=== PATIENT | male | born 1960 | race Caucasian/White ===

== ENCOUNTER 2017-11-20 09:30 | Outpatient (CLI) | payer MEDICARE, SELFPAY ==
--- NOTE | 2017-11-20 10:21 | DI.RAD_ITS ---
SYMPTOMS/DIAGNOSIS: RT SHOULDER PAIN RIGHT SHOULDER: No fracture or dislocation is seen. The AC joint appears intact. There are no significant degenerative changes. No tendon or soft tissue calcifications are seen. IMPRESSION: Negative right shoulder.
== END 2017-11-20 09:50 ==
PROVIDERS: PCP General Practice; Referring Provider General Practice; Visit Provider Student in an Organized Health Care Education/Training Program
DX: M25.511 Pain in right shoulder (principal)
CPT/HCPCS: 73030

== ENCOUNTER → 2017-11-20 09:40 | Outpatient (BNVA) | payer MEDICARE, SELFPAY | PROVIDERS: PCP General Practice; Referring Provider General Practice; Visit Provider Student in an Organized Health Care Education/Training Program | DX: M75.81 Other shoulder lesions, right shoulder (principal) | CPT/HCPCS: 99243 ==

== ENCOUNTER 2017-11-27 00:14 | Outpatient (CLI) | payer MEDICARE, SELFPAY ==
--- NOTE | 2017-11-27 08:51 | DI.CT_ITS ---
SYMPTOM/DIAGNOSIS: MEMORY LOSS NONCONTRAST HEAD CT: There are no prior comparison exams. No intracranial hemorrhage, mass or infarct is seen. The ventricles are normal in size. There are no visible white matter changes or atrophy. The orbits and sinuses are unremarkable. The mastoid air cells appear clear. IMPRESSION: Negative head CT.
== END 2017-11-27 00:34 ==
PROVIDERS: PCP General Practice; Visit Provider General Practice
DX: R41.3 Other amnesia (principal)
CPT/HCPCS: 70450; 73221

== ENCOUNTER 2017-11-27 00:14 | Outpatient (CLI) | payer MEDICARE, SELFPAY ==
--- NOTE | 2017-11-27 08:45 | DI.MRI_ITS ---
SYMPTOMS/DIAGNOSIS: RT SHOULDER PAIN, ? BICEPS AND SUBSCAPULAR INVOLVEMENT MRI OF THE RIGHT SHOULDER: Comparison is made with plain films dated . Proton density and fat suppressed T 2 axial and coronal and T 1 and fat suppressed T 2 sagittal sequences were performed. The exam is limited by patient body habitus. There is poor fat suppression at the periphery of the images. There is a small focal tear in the anterior supraspinatus tendon. There is some overall thickening of the supraspinatus tendon. There is mild spurring at the AC joint which appears to impinge on the distal supraspinatus muscle. There is no significant muscle atrophy. There is some thickening and intermediate signal in the proximal long head of the biceps tendon. There is also some thickening and edema in the subscapularis tendon superiorly. There is no significant joint fluid. IMPRESSION: Partial tear of the anterior supraspinatus tendon. Thickening and intermediate signal in the proximal long head of the biceps tendon as well as subscapularis tendon.
== END 2017-11-27 00:34 ==
PROVIDERS: PCP General Practice; Visit Provider Student in an Organized Health Care Education/Training Program
DX: M25.511 Pain in right shoulder (principal); M75.101 Unspecified rotator cuff tear or rupture of right shoulder, not specified as traumatic
CPT/HCPCS: 73221

== ENCOUNTER 2017-12-04 00:59 | Outpatient (CLI) | payer MEDICARE, SELFPAY ==
[2017-12-04 10:04] LABS: ALT 60 U/L (12-78); AST 29 U/L (15-37); Alkaline Phosphatase 94 U/L (46-116); Anion Gap 11.5 mmol/L (3-11); BUN 16 mg/dL (7-18); Bilirubin, Total 0.3 mg/dL (0.2-1.0); CO2 24.5 mmol/L (21.0-32.0); CREATININE 0.94 mg/dL (0.70-1.30); Calcium 8.9 mg/dL (8.5-10.1); Chloride 103 mmol/L (98-107); Cholesterol 292 mg/dL (50-200); Glucose 100 mg/dL (70-100); HDL Cholesterol 49 mg/dL (40-60); LDL CHOLESTEROL 208 mg/dL (<100); Potassium 4.3 mmol/L (3.5-5.1); Sodium 139 mmol/L (136-145); TSH 1.84 uIU/mL (0.358-3.74); Total Protein 7.4 g/dL (6.4-8.2); Triglyceride 155 mg/dL (30-150); Vitamin B12 1026 pg/mL (193-986)
== END 2017-12-04 01:19 ==
PROVIDERS: PCP General Practice; Visit Provider General Practice
DX: J45.909 Unspecified asthma, uncomplicated (principal); Z51.81 Encounter for therapeutic drug level monitoring; Z79.899 Other long term (current) drug therapy; R41.3 Other amnesia; S46.011A Strain of muscle(s) and tendon(s) of the rotator cuff of right shoulder, initial encounter; X58.XXXA Exposure to other specified factors, initial encounter; M75.82 Other shoulder lesions, left shoulder; M75.81 Other shoulder lesions, right shoulder
CPT/HCPCS: 36415; 80053; 80061; 83721; 99213; 80198; 82607; 84443

== ENCOUNTER 2018-06-09 12:47 | Outpatient (CLI) | payer MEDICARE, SELFPAY ==
--- NOTE | 2018-06-09 13:49 | W.PREOPHP ---
Assessment and Plan (1) Right rotator cuff tear: Current visit: Yes Status: Acute Plan: Although patient's physical exam has improved since his last orthopedic visit, he wishes to continue with surgery due to his continued right shoulder pain with activity. Educated patient on surgery covering surgical technique, recovery process, benefits and risks including but not limited to risk of infection, blood clot, damage to soft tissue/blood vessels/nerves in detail. After discussion patient gives verbal understanding of risks and elects to proceed with scheduling surgery. Patient had opportunity to have questions answered to his satisfaction. He will contact office if issues arise. Patient will continue to be scheduled for right arthroscopic rotator cuff repair, distal clavicle excision and possible biceps tenodesis with Dr. Gaxiola on 06/15/18. Qualifiers: Rotator cuff tear extent: incomplete Rotator cuff tear trauma status: traumatic Encounter type: subsequent encounter Qualified Code(s): S46.011D - Strain of muscle(s) and tendon(s) of the rotator cuff of right shoulder, subsequent encounter (2) Arthralgia of right acromioclavicular joint: Current visit: Yes Status: Acute History of Present Illness Narrative: Mr. Samuel is a 58-year-old left-hand dominant male who presents to clinic for pre-operative appointment for scheduled right arthroscopic rotator cuff repair, distal clavicle excision and possible biceps tenodesis with Dr. Gaxiola on 06/15/18. 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 He describes incident as pushing a segment of wall up onto the roof using both arms in a flexed position above shoulder height. He suddenly felt a sharp pulling sensation in his right arm and had pain immediately at time of injury. Patient has previously been seen in orthopedic clinic where he received a right subacromial injection on October 02, 2017 which did not provide pain relief. He describes pain as in the anterior aspect of right shoulder with radiation down the forearm and neck. He is unable to lift objects when his right arm is off to the side and has difficulty putting on his seat belt with his right arm. Pain is further aggravated with all use of the arm away from his body. Although he had previously reported a single episode of tingling in the pinky and ring finger at his last orthopedic appointment; he denies any recent numbness or tingling. Patient has been taking Aleve at night for pain management. Denies any further injury. Due to patient's continued pain despite adapting activity, taking regular doses of NSAIDs, daily exercises and a corticosteroid injection he was offered surgical intervention which he elected to be scheduled for. MRI of right shoulder: Partial tear of anterior supraspinatus, thickening and intermediate signal in the proximal long head of the biceps and subscapularis as per impression by Dr. Casey. As per Dr. Gaxiola's MRI interpretation noted at patient's previous visit on 12/04/17 stated full-thickness, small supraspinatus tear with high-grade partial tearing of subscapularis. Pertinent Surgical Information He does have history of hypertension that has been treated with prescription medications in the past. Patient reports he had severe muscle aches after being on hydrochlorothiazide which prompted his primary care provider to switch his medication. Patient reports he had been doing well on his new prescription for hypertension but did not pick up driver a recent refill and has been off the medication for several weeks. He has plans to get a prescription in near future. He had previously been diagnosed with hyperlipidemia but due to recent dietary changes as lowered his cholesterol. At this time patient is not on medication for hyperlipidemia. Patient reports previous history of what is described as pericarditis approximately 15-20 years ago. Patient reports he had initially presented to emergency room at [facility] and then went to [facility]. On additional testing done at [facility] he was diagnosed with irritation on the layer of tissue surrounding the heart. He was discharged and drove himself home. Denies any required cardiology follow-up or cardiac symptoms since that single episode. Denies past medical history of: stroke, cardiac issues, angina, COPD, sleep apnea, renal issues, liver issues, hepatitis, ulcers, bleeding disorders, seizures, migraines, anxiety, depression, diabetes, autoimmune disorders, thyroid issues Denies prior complications from surgery or anesthesia. Review of Systems Constitutional Denies fever(s), Denies frequent falls and Reports headache(s) (reports headaches occur when his right shoulder pain is severely aggravated) Eyes Denies change in vision ENT Denies dizziness, Denies ear discharge, Reports headache(s) (reports headaches occur when his right shoulder pain is severely aggravated), Denies epistaxis, Denies mouth lesions, Reports mouth pain (sore tooth several weeks ago that has since improved), Denies nasal discharge and Denies sore throat Cardiovascular Denies chest pain, Denies rapid heart rate, Denies irregular heart rhythm, Reports dyspnea (denies recent change; occasionally due to asthma; improves with inhaler), Reports dyspnea on exertion (denies recent change; occasionally due to asthma; improves with inhaler), Reports orthopnea (denies recent change; rarely but related to asthma; improves with inhaler), Reports paroxysmal nocturnal dyspnea (denies recent change; rare episodes due to asthma; improves with inhaler) and Denies slow heart rate Respiratory Denies cough, Reports dyspnea (denies recent change; occasionally due to asthma; improves with inhaler), Reports dyspnea on exertion (denies recent change; occasionally due to asthma; improves with inhaler) and Reports wheezing (denies recent change; occasionally due to asthma; improves with inhaler) Gastrointestinal Denies abdominal pain, Denies melena, Denies hematochezia, Denies constipation, Denies diarrhea, Denies nausea and Denies vomiting Genitourinary Denies hematuria, Denies dysuria and Denies urinary urgency Musculoskeletal Reports as per HPI, Reports joint swelling (occasional left knee swelling), Denies numbness and Denies tingling Neurologic Denies dizziness, Denies frequent falls, Reports headache(s) (reports headaches occur when his right shoulder pain is severely aggravated), Denies numbness and Denies tingling Psychiatric Denies anxiety and Denies depression Allergic/Immunologic Reports wheezing (denies recent change; occasionally due to asthma; improves with inhaler) PFSH Medical History Allergic rhinitis (Chronic 03/13/14) Wheezing (Chronic 03/13/14) Tendinitis of left rotator cuff (Resolved) Arthralgia of right acromioclavicular joint (Acute) Right rotator cuff tear (Acute) Postnasal drip (Resolved 03/13/14) GERD (gastroesophageal reflux disease) (Chronic) History of asthma (Chronic) Hx of eczema (Chronic) Surgical History History of appendectomy (Chronic) Hx of arthroscopy of left knee (Chronic) Colonoscopy - IV Sedation Vasectomy Family History Mother Breast cancer Heart disease Father No problems noted. Social History Smoking/Tobacco Use Status: Former Tobacco Use Tobacco: How many years used: 30 Alcohol Intake: current Alcohol Intake frequency: a few times a month Drug use: Never Household members: spouse Do you feel safe in your relationship?: Yes Meds Home Medications Medication Instructions Recorded Confirmed Type albuterol sulfate 0.63 mg INHALATION BID 03/23/15 06/09/18 History theophylline 600 mg PO BID 03/23/15 06/09/18 History albuterol sulfate [ProAir HFA] 1 puff INHALATION PRN PRN 05/14/15 06/09/18 History budesonide-formoterol [Symbicort] 2 puff INHALATION BID 06/09/18 06/09/18 History naproxen sodium [Aleve] 440 mg PO BID 06/09/18 06/09/18 History omeprazole 40 mg PO DAILY 06/09/18 06/09/18 History Allergies Allergy/AdvReac Type Severity Reaction Status Date / Time gaona Allergy Severe angioedema Verified 06/09/18 13:45 egg Allergy Severe angioedema Verified 06/09/18 13:45 nut - unspecified [nut] Allergy Severe angioedema Verified 06/09/18 13:45 Exam Const General: cooperative and no acute distress HENMT Head: normal to inspection, normocephalic and atraumatic Ears: external ears normal General nose exam: external nose normal and no nasal discharge Face and sinus: face symmetric Mouth: oral mucosae normal, lip normal, tongue normal and moist mucous membranes Teeth and gingiva: dentition normal Throat: posterior oropharynx normal Eyes General: appearance normal, both eyes and all related structures Pupils: PERRL EOM: EOM intact bilaterally Neck Neck: trachea midline Lymphatic: no lymphadenopathy noted Resp Effort & Inspection: normal respiratory effort and able to speak in complete sentences Auscultation: clear to auscultation bilaterally, no rales, no rhonchi and no wheezes Cardio Heart Sounds: S1 normal, S2 normal and no murmurs Pulses: radial pulses present bilaterally GI Palpation: soft, no hepatosplenomegaly and nontender Auscultation: normal bowel sounds Skin General skin exam: no rashes or lesions noted Extrem Other: Right shoulder examination: Slight tenderness to palpation over distal clavicle. Active range of motion yields forward flexion of 150 degrees, abduction of 105 degrees with pain elicited, external rotation with elbow adducted at side of 50 degrees and on internal rotation patient can reach level of approximately L5. Muscle strength to resisted forward flexion was 4 out of 5, resisted abduction was 4+ out of 5; internal and external rotation was 5 out of 5. Empty can test was positive for eliciting pain and weakness. Menard test elicited minimal discomfort over anterior shoulder. Scarf test and bearhug tests were negative for eliciting pain or weakness.
== END 2018-06-09 13:07 ==
PROVIDERS: PCP Family Medicine; Visit Provider Student in an Organized Health Care Education/Training Program
DX: Z01.818 Encounter for other preprocedural examination (principal); S46.011D Strain of muscle(s) and tendon(s) of the rotator cuff of right shoulder, subsequent encounter; X50.9XXD Other and unspecified overexertion or strenuous movements or postures, subsequent encounter; I10 Essential (primary) hypertension
CPT/HCPCS: NC

== ENCOUNTER 2018-06-15 08:52 | Day surgery (SDC) | payer MEDICARE, SELFPAY ==
[2018-06-09 13:00] VITALS: BP 159/98; PULSE 70; RESP 18; TEMP 36.7; O2SAT 95
[2018-06-15] VITALS (8 sets, daily range): BP systolic 104–145; BP diastolic 46–102; PULSE 59–75; RESP 14–20; TEMP 35.8–36.7; O2SAT 93–96
[2018-06-15] MEDS: Lactated Ringers 1,000 ML 80 ML IV ×2 (09:27→12:25)
[2018-06-15] MEDS: ceFAZolin 2 GM/50 ML BAG IVPB (11:49)
--- NOTE | 2018-06-15 11:59 | PDOC.DSDIS_ITS ---
Discharge Plan Disposition Patient Disposition: HOME Condition: Good Discharge Details Reason For Visit: R RTC tendinitis, biceps tendinitis, AC arthritis Attending Provider: Abel Gaxiola Primary Care Provider: Syeda Jennings Home Meds and New Rx's Prescriptions: New acetaminophen 500 mg tablet 1,000 mg PO Q8H PRN (Reason: pain) Qty: 90 RF: 3 oxycodone 5 mg tablet 5 mg PO Q4H Qty: 18 RF: 0 Continued albuterol sulfate 0.63 MG/3 ML solution for nebulization 0.63 mg Inhalation BID RF: 0 theophylline 600 MG tablet extended release 24 hr 600 mg PO BID RF: 0 albuterol sulfate [ProAir HFA] 200 PUFF HFA aerosol inhaler 1 puff Inhalation PRN PRNRF: 0 Symbicort 160-4.5 mcg/actuation Hfa Aerosol Inhaler 2 puff INHALATION BID RF: 0 naproxen sodium [Aleve] 220 mg Capsule 440 mg PO BID RF: 0 omeprazole 40 mg Capsule,Delayed Release(Dr/Ec) 40 mg PO DAILY RF: 0 Discharge Instructions Stand Alone Forms: Khalida Villagran w/RCR Referrals: Abel Gaxiola MD [ [facility] STAFF PHYSICIAN] - Equipment/Supplies: Sling Activity:: Stay in sling except for hygiene Remove Dressings/Wound Care:: 72 hours Shower/Bathe:: 72 hours Diet:: As Tolerated Discharge Orders Discharge Orders: Discharge Order (Routine); Ordered 06/15/18 Ordered By: Abel Gaxiola DS: Diagnosis Discharge Diagnosis (1) Arthralgia of right acromioclavicular joint: Status: Acute (2) Right rotator cuff tear: Status: Acute
--- NOTE | 2018-06-15 15:05 | W.PM.OP ---
Date of service: 06/15/18 Time of Service: 14:06 Operative Note DATE OF PROCEDURE: 06/15/18 PRE-OP DIAGNOSIS: Right AC arthritis, right biceps tendinitis, right rotator cuff tear POST-OP DIAGNOSIS: other (Right AC arthritis, right type II SLAP tear, right glenohumeral arthritis, right rotator cuff) PROCEDURE: - Mini-Open Distal Clavicle Excision - Arthroscopic Rotator Cuff Repair - Extensive debridement of anterior and posterior glenohumeral joint and rotator cuff - Sub-pectoral biceps tenodesis - Subacromial Debridement with Acromioplasty SURGEON: Abel Gaxiola ASSISTING SURGEON: Ellen Saxena ROUGH ROUNDER: Kieran Kendall ANESTHESIA: GETA and regional ESTIMATED BLOOD LOSS: 20 PATHOLOGY: none sent COMPLICATIONS: None Patient was transported to: PACU Patient's condition: stable Indications: I have seen Quinten in clinic for a painful shoulder. Pathology was confirmed based on MRI and exam findings. Nonoperative measures were exhausted but disability and pain persisted. I discussed shoulder arthroscopy and procedures. I reviewed the risks of the procedures to include, but not limited to, bleeding, infection, pain, stiffness, damage to nerves or vessels, recurrence, hardware failure, blood clot. Despite these risks, the patient elected to proceed. Findings: There were signs of arthrosis of the distal clavicle; a 1cm wedge was resected A diagnostic arthroscopy was performed with the following findings: - Glenohumeral Joint: Areas of grade III chondromalacia over a large portion of the central posterior humeral head and a smaller portion of the anterior glenoid - Labrum: Type II SLAP tear - Cuff: Full-thickness anterior supraspinatus tear - Biceps: Inflammatory change - Subacromial: Notable bursitis with a small anterolateral spur and full-thickness rotator cuff tear Procedure Description: Quinten was greeted in the preoperative holding area where the correct side was identified and marked. The consent was reviewed with the patient and signed. The history and physical was updated. All questions were answered. Quinten was taken back to the PACU for administration of an intrascalene nerve block. Quinten was then taken to the operating room. The patient was placed into the supine position on the operating room table. A general anesthetic was administered. Quinten was then positioned in the beach chair position. All bony prominences were well padded. The head was placed in a foam art department head in a neutral position. Prophylactic antibiotics in the form of cefazolin were administered. The right arm/shoulder was then prepped with Chloraprep and draped in a standard fashion with stockinette and shoulder drape. A timeout to confirm correct identity, side and site, procedure, allergies, anesthesia, and medical concerns was performed. The arm was placed into a pneumatic rodrigues, SPIDER2. The distal clavicle was approached through a 2 and half centimeter incision within Dominic's lines. This was made overlying the AC joint. The skin was incised sharply. The deeper tissues dissected with electrocautery. The clavipectoral fascia was identified and incised longitudinally off of the distal clavicle and onto the acromion. This was reflected subperiosteally to expose the distal clavicle and the AC joint. With adequate exposure a 1 cm bony resection was made using an oscillating saw. This is angled posteriorly to avoid any posterior impingement. Once it was fully resected, it was inspected to make sure it is of adequate width. A rasp was used to smooth the bony edges inferiorly and posteriorly primarily. A small amount of bone wax was placed on the end of the distal clavicle. The wound was thoroughly irrigated. There is no active bleeding. The clavipectoral fascia was then closed with a 0 Vicryl in a watertight fashion. The subcutaneous tissues were then reapproximated with a 2-0 Vicryl. The shoulder arthroscopy was then performed. The glenohumeral joint was injected with 20 cc of normal saline with good flow back. A standard posterior portal was made and the joint was entered atraumatically with a blunt arthroscope. Once inside we had good visualization of the structures of the glenohumeral joint. An anterior portal was established with spinal needle localization. A 6.5 mm cannula was inserted. A probe was then used to perform a diagnostic arthroscopy. There is noted to be grade III chondromalacia over the central posterior portion of the humeral head as well as the anterior glenoid. The labrum was detached superiorly representing a type II SLAP tear extending from approximately 11:00 to 3:00. There were no loose bodies in the inferior pouch. The superior rotator cuff was torn anteriorly within the supraspinatus tendon. The biceps tendon had no tearing but inflammatory change. The subscapularis was intact. The rotator interval was also significantly thickened. This area was released. Fraying of the superior anterior labrum was debrided down. The biceps was tenotomized using electrocautery. A debridement within the shoulder was performed with both shaver and electrocautery. The rotator cuff was inspected and the tearing of the anterior supraspinatus was debrided as well as some of the footprint. Attention was then turned to the biceps tenodesis. With the arm in some slight external rotation abduction pectoralis major tendon was identified. A 2 cm incision was made overlying the insertion to the humerus. Sharp dissection was carried onto the skin. Blunt dissection was carried down to the fascia the biceps musculature. This was entered with a tenotomy scissors. The biceps groove was palpable and the biceps tendon was palpable. It was withdrawn from the wound using Allis clamp and finger dissection. Once the biceps tendon was out of the arm the biceps groove was prepared using a rasp. A Mitek Lupine anchor was inserted into the biceps groove at the level of the pectoralis major insertion. This was tested to make sure had excellent fixation into the bone. Using a free needle I then placed a locking Krak?w stitch and each side of the biceps tendon using one limb from each suture at the level of the muscular tendinous junction and moving proximally. Excess tendon was then cut. Using the free suture limb I then shuttled the tendon down to the prepared surface of the humerus. It laid flat against the humerus. It was at the level of the pectoralis major tendon. The suture limbs were then tied. The wound was irrigated. The subcutaneous tissue was reapproximated with a 2-0 Vicryl. The arthroscope was then inserted into the subacromial space. The 6.5 mm cannula was placed lateral to the CA ligament. A complete bursectomy is performed anteriorly, posteriorly, and laterally with electrocautery and shaver. This had excellent exposure of the rotator cuff. The bursal side rotator cuff was visualized and the tearing of the anterior supraspinatus was identified. There was a small anterolateral spur. Using a spinal needle two lateral portals were established. The posterior portal became the viewing portal and the anterior lateral portal became the working portal. The rotator cuff was debrided down. The footprint was debrided and rasped. This is a primary small crescent tear. A single double loaded Mitek Healix anchor was then inserted just lateral to the articular edge. Was placed without difficulty. 2 horizontal mattress sutures were then placed within the supraspinatus tendon. The tissue quality was quite good. These were then tied with excellent approximation and closure of the space between the rotator cuff and the footprint. 2 lateral anchors were then placed each with one limb from each suture. This created a crossing pattern which further reapproximated the tendon down to the bone. Suture limbs were cut. A 5.0 mm kevin was then inserted from the posterior portal. The anterolateral corner of the acromion was then resected in plane with the posterior slope of the acromion. The scope equipment was removed from the shoulder. Excess fluid was evacuated. The portal sites were closed with 3-0 Monocryl. The wounds were dressed with Steri-Strips, 4 x 4's, ABDs, Medipore tape. A sling was applied. The patient tolerated the procedure well and was returned to the Same Day Surgery area in a stable condition suffering no known complication.
== END 2018-06-15 16:53 | disposition home or self-care (01) ==
PROVIDERS: PCP Family Medicine; Visit Provider Student in an Organized Health Care Education/Training Program
PROC: (CPT 29827; principal; 2018-06-15 10:15)
PROC: (CPT 23120; 2018-06-15 10:15)
PROC: (CPT 23430; 2018-06-15 10:15)
DX: S43.431A Superior glenoid labrum lesion of right shoulder, initial encounter (principal); S46.011A Strain of muscle(s) and tendon(s) of the rotator cuff of right shoulder, initial encounter; M25.511 Pain in right shoulder; M19.011 Primary osteoarthritis, right shoulder; M94.211 Chondromalacia, right shoulder; M75.51 Bursitis of right shoulder; M75.21 Bicipital tendinitis, right shoulder; X50.0XXA Overexertion from strenuous movement or load, initial encounter; Y93.H3 Activity, building and construction; I10 Essential (primary) hypertension
CPT/HCPCS: 23430; 29827; 29823; 29826; 23120; C1713; 76942; J0690; L3670

== ENCOUNTER → 2018-06-25 09:23 | Outpatient (BNVA) | payer MEDICARE, SELFPAY | PROVIDERS: PCP Family Medicine; Referring Provider Family Medicine; Visit Provider Student in an Organized Health Care Education/Training Program | DX: Z47.89 Encounter for other orthopedic aftercare (principal); S46.011D Strain of muscle(s) and tendon(s) of the rotator cuff of right shoulder, subsequent encounter; S43.431D Superior glenoid labrum lesion of right shoulder, subsequent encounter; M19.011 Primary osteoarthritis, right shoulder; M25.511 Pain in right shoulder; M94.211 Chondromalacia, right shoulder; M75.51 Bursitis of right shoulder; M75.21 Bicipital tendinitis, right shoulder; X50.0XXD Overexertion from strenuous movement or load, subsequent encounter; Z98.890 Other specified postprocedural states ==

== ENCOUNTER → 2018-07-23 09:00 | Outpatient (BNVA) | payer MEDICARE, SELFPAY | PROVIDERS: PCP Family Medicine; Referring Provider Family Medicine; Visit Provider Student in an Organized Health Care Education/Training Program | DX: Z47.89 Encounter for other orthopedic aftercare (principal); M25.511 Pain in right shoulder ==

== ENCOUNTER → 2018-08-23 09:58 | Outpatient (BNVA) | payer MEDICARE, SELFPAY | PROVIDERS: PCP Family Medicine; Referring Provider Family Medicine; Visit Provider Student in an Organized Health Care Education/Training Program | DX: Z47.89 Encounter for other orthopedic aftercare (principal); M25.511 Pain in right shoulder ==

== ENCOUNTER 2019-04-25 21:43 | Outpatient (REF) | payer MEDICARE, SELFPAY ==
[2019-04-25 21:30] LABS: HCT 46.4 % (40.0-50.0); HGB 15.9 g/dL (13.5-17.5); Mean Corp. HGB Concentration 34.3 g/dL (32.0-36.0); Mean Corpuscular Hemoglobin 29.9 pg (27.0-33.0); Mean Corpuscular Volume 87.4 fL (80-95); Platelet Count 255 x1000/uL (130-400); RBC 5.31 m/cumm (4.50-6.00); RBC Distribution Width 13.6 % (11.8-14.1); White Blood Cell Count 5.15 k/cumm (4.4-10.8)
[2019-04-25 21:38] LABS: ALT 23 U/L (16-63); AST 18 U/L (15-37); Alkaline Phosphatase 96 U/L (46-116); Anion Gap 10.2 mmol/L (3-11); BUN 18 mg/dL (7-18); Bilirubin, Total 0.4 mg/dL (0.2-1.0); CO2 27.8 mmol/L (21.0-32.0); CREATININE 0.99 mg/dL (0.70-1.30); Calcium 8.9 mg/dL (8.5-10.1); Calculated LDL 173 mg/dL (<100); Chloride 105 mmol/L (98-107); Cholesterol 239 mg/dL (<200); Glucose 78 mg/dL (74-106); HDL Cholesterol 47 mg/dL (40-60); Potassium 4.3 mmol/L (3.5-5.1); Sodium 143 mmol/L (136-145); Total Protein 7.1 g/dL (6.4-8.2); Triglyceride 95 mg/dL (<150)
[2019-04-27 14:01] LABS: PSA, Screening 8.4 ng/mL (0.0-3.5)
== END 2019-04-25 22:03 ==
LOC: NCHCN 21:43
PROVIDERS: PCP Family Medicine; Visit Provider Family Medicine
DX: I10 Essential (primary) hypertension (principal); K21.9 Gastro-esophageal reflux disease without esophagitis; E66.9 Obesity, unspecified; Z12.5 Encounter for screening for malignant neoplasm of prostate
CPT/HCPCS: 80053; 80061; 84153; 85027

== ENCOUNTER → 2019-11-11 07:43 | Outpatient (BNVA) | payer MEDICARE, SELFPAY | PROVIDERS: PCP Family Medicine; Referring Provider Family Medicine; Visit Provider Surgery | DX: R13.10 Dysphagia, unspecified (principal); Z86.010 Personal history of colon polyps; Z11.59 Encounter for screening for other viral diseases | CPT/HCPCS: 99212; 99213; U0003 ==

== ENCOUNTER 2019-11-11 08:42 | Outpatient (CLI) | payer MEDICARE, SELFPAY ==
[2019-11-13 00:24] LABS: COVID-19 RT-PCR Result NEGATIVE (Negative)
== END 2019-11-11 09:02 ==
PROVIDERS: PCP Family Medicine; Visit Provider Surgery
DX: Z01.818 Encounter for other preprocedural examination (principal)
CPT/HCPCS: U0003

== ENCOUNTER 2019-11-16 09:38 | Day surgery (SDC) | payer MEDICARE, SELFPAY ==
--- NOTE | 2019-11-16 08:44 | ENDO_ITS ---
Date of service: 11/16/19 Time of Service: 11:08 Endoscopy Report DATE OF PROCEDURE: 11/16/19 PRE-OP DIAGNOSIS: Dysphagia, screening colonoscopy, hx of colon polyps POST-OP DIAGNOSIS: other (Erosive esophagitis, gastritis and duodenitis, colon polyps and milod diverticulosis) PROCEDURE: 1. EGD with biopsies 2. Colonoscopy with polypectomy SURGEON: Christie Bell ANESTHESIA: other (General/ ASA 2/ Coco Chawla, [employer]) ESTIMATED BLOOD LOSS: 10 PATHOLOGY: other (Duodenal bx, gastric bx, esophageal bx, colon polyps) COMPLICATIONS: None DISPOSITION: same day INDICATIONS: Quinten is here today to see me due to issues with swallowing. He tells me that about 6 to 8 months ago he started with what he describes as hiccups with eating. At first it was not happening with every meal but as time went on it started to be daily and with every meal. He feels like meats are the worst but he even has problems with water. He sometimes has to make himself throw up in order for him to then be able to swallow some food. He denies any hematemesis. He denies any heart burn. He continues to take his omeprazole 40 mg daily. He does tell me that he has lost about 30 pounds since this started. He feels that the weight loss is due to the fact that he has not been eating much. He states that sometimes he goes all weekend without eating because of how bad it is. He is a former smoker. He drinks 2 or 3 beers on the weekends n othing during the week. Reviewing his chart he is also due for a colonoscopy. At his last colonoscopy in 2015 he was noted to have a tubular adenoma in the transverse colon and I sessile serrated adenoma in the sigmoid colon. He was due for another colonoscopy in 2019. He denies any changes in bowel habits, melena, hematochezia, or family history of colon cancer. PREP: Miralax/Dulcolax PROCEDURE START TIME: 11:08 PROCEDURE END TIME: 12:05 FINDINGS: EGD- Severe erosive esophagitis at the GE junction with narrowing. Tissue was friable. Moderate inflammation in the duodenum and the stomach Colonoscopy- mild diverticulosis and polyps PROCEDURE DESCRIPTION: After informed consent was obtained the patient was take to the procedure room and placed in a supine position. Monitors were applied and a time out was done. The patients name, date of , procedure type, allergies to medications and metal in their body was reviewed. A bite block was placed and the patient was sedated. Once sedated and comfortable the gastroscope was advanced through the oropharynx which was grossly normal into the esophagus. The proximal and mid- esophagus were normal. In the distal esophagus there was erosive inflammation as well as some scarring. There was a pill noted at the GE junction. The scope was advanced into the stomach and through the pylorus into the 3rd portion of the duodenum. The duodenum was noted to be moderately inflamed. Biopsies were done in the duodenal bulb. The scope was retracted back into the stomach and biopsies were done to rule out H. pylori. There were no ulcers. The scope was retroflexed. The cardia and fundus were noted to be normal. There was no hiatal hernia noted. The scope was retracted back into the esophagus and biopsies were done of the GE junction to rule out Heller's. The Z line was irregular and hard to find due to the severe inflammation. The GE junction was at 35 cm. While the patient was still sedated they were placed in a left decubitous position. A rectal exam was done. External exam was normal. Internal exam revealed a normal sphincter tone and no palpable masses. The prostate felt smooth. The scope was then introduced and retro-flexed. No internal hemorrhoids were identified. The scope was then advanced to the cecum without difficulty. The ileocecal valve and appendiceal orifice were identified. The prep was adequate. The scope was then slowly retracted over 15 minutes back into the rectum. Polyps were removed with cold forceps in the Descending colon x2, sigmoid colon and rectum. There was also mild diverticulosis noted of the sigmoid colon. The scope was removed and the patient was woken up and taken back to Same day surgery in stable condition. The patient tolerated the procedure well and there were no immediate compli cations. Follow up: 1 week in the office. Will increase his Omeprazole to 40 mg BID and add Carafate slurry tid
[2019-11-16 09:46] VITALS: BP 122/80; PULSE 84; RESP 18; TEMP 36.2; O2SAT 98
[2019-11-16] MEDS: Lactated Ringers 1,000 ML 80 ML IV (10:35)
--- NOTE | 2019-11-16 11:11 | BOWEL_PTH ---
PATIENT: Quinten Samuel LOC: [facility] U#:[id number] AGE/SX: 59/M ROOM: RE11/16/[address]: Christie Bell MD : [id number] BED: DIS: 11/16/2019 SPEC #: [id number] RECD: 11/16/19 12:32 STATUS: HENRI RE #: [id number] JACKIE: 11/16/19 11:[address]: Christie Bell DEPT: Surgical Specimen RECD BY: Adam Joel ENTERED: 11/16/19 12:36 SP TYPE: Bowel OTHR DR: Syeda Jennings Tissues: 1 - BIOPSY BOWEL 2 - BIOPSY BOWEL 3 - BIOPSY BOWEL 4 - BIOPSY BOWEL 5 - BIOPSY BOWEL 6 - BIOPSY BOWEL 7 - BIOPSY BOWEL Procedures: GROSS AND MICRO LEVEL 4 Comments: [id number]
--- NOTE | 2019-11-16 12:00 | PDOC.DSDIS_ITS ---
Discharge Plan Disposition Patient Disposition: HOME Condition: Good Discharge Details Attending Provider: Christie Bell Primary Care Provider: Syeda Jennings Home Meds and New Rx's Prescriptions: New omeprazole 40 mg capsule,delayed release(DR/EC) 40 mg PO BID Qty: 60 RF: 2 sucralfate 1 gram tablet 1 gm PO TID Qty: 56 RF: 0 Continued albuterol sulfate 0.63 MG/3 ML solution for nebulization 0.63 mg Inhalation BID RF: 0 theophylline 600 MG tablet extended release 24 hr 600 mg PO BID RF: 0 lisinopril 10 mg tablet 10 mg PO DAILY RF: 0 epinephrine 0.3 mg/0.3 mL auto-injector 0.3 mg IM ONCE RF: 0 clobetasol 0.05 % ointment 1 applic TP BID RF: 0 hydrocortisone 2.5 % cream 1 applic TP BID PRNRF: 0 albuterol sulfate [Ventolin HFA] 90 mcg/actuation HFA aerosol inhaler 2 puff IH QID RF: 0 cyclobenzaprine 10 mg tablet 10 mg PO HS RF: 0 albuterol sulfate [ProAir HFA] 200 PUFF HFA aerosol inhaler 1 puff Inhalation PRN PRNRF: 0 budesonide-formoterol [Symbicort] 160-4.5 mcg/actuation Hfa Aerosol Inhaler 2 puff INHALATION BID RF: 0 acetaminophen 500 mg tablet 1,000 mg PO Q8H PRN (Reason: pain) Qty: 90 RF: 3 Discontinued naproxen sodium [Aleve] 220 mg Capsule 440 mg PO BID RF: 0 omeprazole 40 mg Capsule,Delayed Release(Dr/Ec) 40 mg PO DAILY RF: 0 Discharge Instructions Instructions: Diet for Stomach Ulcers and Gastritis (ED), Esophagitis (DC), Duodenitis (DC), Gastritis (DC), Colorectal Polyps (DC), Diverticulosis (DC) Additional Instructions: Findings: erosive esophagitis inflammation in the small bowel and stomach Mild diverticulosis several small polyps in the large bowel Follow up: 2 weeks in the office Please call if you develop: fevers >101.5 Nausea or Vomiting Abdominal pain that is not transient DAY SURGERY UNIT POST ENDOSCOPY INSTRUCTIONS 1. Because there will be medication in your system for the next 24 hours, you may feel a little sleepy. Your coordination will be affected. Therefore: a. Do not drive or operate dangerous equipment for 24 hours. b. Do not drink alcohol beverages for 24 hours (not even beer). c. Plan to go home and rest for the day. 2. Generally there are no restrictions on your activity after a day or so has gone by, but you may feel a bit fatigued for a few days. 3 After you arrive home you may have a light meal and return to a normal diet as you can tolerate it without feeling sick to your stomach. 4. After surgery, you may feel pain or discomfort. This should be only transien t, but if it persists please contact your doctor. 5. If there are any questions regarding the findings of your procedure, please feel free to contact your doctor. 6. If you are unable to contact your doctor with a problem, contact the hospital at [phone]. 7. Continue all your regular medications unless directed otherwise. I understand the above instructions and have no questions. Signature of Patient or Responsible Adult Escort Date/Time Name of Responsible Adult Escort Signature of Nurse Date/Time Activity:: Activity as Tolerated Diet:: soft foods Discharge Orders Discharge Orders: Discharge Order (Routine); Ordered 11/16/19 Ordered By: Christie Bell
--- NOTE | 2019-11-16 12:25 | PDOC.DSDIS_ITS ---
Discharge Plan Disposition Patient Disposition: HOME Condition: Good Discharge Details Attending Provider: Christie Bell Primary Care Provider: Syeda Jennings Home Meds and New Rx's Prescriptions: New omeprazole 40 mg capsule,delayed release(DR/EC) 40 mg PO BID Qty: 60 RF: 2 sucralfate 1 gram tablet 1 gm PO TID Qty: 56 RF: 0 Continued albuterol sulfate 0.63 MG/3 ML solution for nebulization 0.63 mg Inhalation BID RF: 0 theophylline 600 MG tablet extended release 24 hr 600 mg PO BID RF: 0 lisinopril 10 mg tablet 10 mg PO DAILY RF: 0 epinephrine 0.3 mg/0.3 mL auto-injector 0.3 mg IM ONCE RF: 0 clobetasol 0.05 % ointment 1 applic TP BID RF: 0 hydrocortisone 2.5 % cream 1 applic TP BID PRNRF: 0 albuterol sulfate [Ventolin HFA] 90 mcg/actuation HFA aerosol inhaler 2 puff IH QID RF: 0 cyclobenzaprine 10 mg tablet 10 mg PO HS RF: 0 albuterol sulfate [ProAir HFA] 200 PUFF HFA aerosol inhaler 1 puff Inhalation PRN PRNRF: 0 budesonide-formoterol [Symbicort] 160-4.5 mcg/actuation Hfa Aerosol Inhaler 2 puff INHALATION BID RF: 0 acetaminophen 500 mg tablet 1,000 mg PO Q8H PRN (Reason: pain) Qty: 90 RF: 3 Discontinued naproxen sodium [Aleve] 220 mg Capsule 440 mg PO BID RF: 0 omeprazole 40 mg Capsule,Delayed Release(Dr/Ec) 40 mg PO DAILY RF: 0 Discharge Instructions Instructions: Gastritis (DC), Diverticulosis (DC), Diet for Stomach Ulcers and Gastritis (ED), Colorectal Polyps (DC), Esophagitis (DC), Duodenitis (DC) Additional Instructions: Findings: erosive esophagitis inflammation in the small bowel and stomach Mild diverticulosis several small polyps in the large bowel Follow up: 2 weeks in the office Please call if you develop: fevers >101.5 Nausea or Vomiting Abdominal pain that is not transient DAY SURGERY UNIT POST ENDOSCOPY INSTRUCTIONS 1. Because there will be medication in your system for the next 24 hours, you may feel a little sleepy. Your coordination will be affected. Therefore: a. Do not drive or operate dangerous equipment for 24 hours. b. Do not drink alcohol beverages for 24 hours (not even beer). c. Plan to go home and rest for the day. 2. Generally there are no restrictions on your activity after a day or so has gone by, but you may feel a bit fatigued for a few days. 3 After you arrive home you may have a light meal and return to a normal diet as you can tolerate it without feeling sick to your stomach. 4. After surgery, you may feel pain or discomfort. This should be only transien t, but if it persists please contact your doctor. 5. If there are any questions regarding the findings of your procedure, please feel free to contact your doctor. 6. If you are unable to contact your doctor with a problem, contact the hospital at [phone]. 7. Continue all your regular medications unless directed otherwise. I understand the above instructions and have no questions. Signature of Patient or Responsible Adult Escort Date/Time Name of Responsible Adult Escort Signature of Nurse Date/Time Activity:: Activity as Tolerated Diet:: soft foods Discharge Orders Discharge Orders: Discharge Order (Routine); Ordered 11/16/19 Ordered By: Christie Bell Discharge Data Discharge Date/Time-TO BE ENTERED AT DEPARTURE: 11/16/19 13:09
[2019-11-16 12:36] VITALS: BP 108/74; PULSE 66; RESP 15; TEMP 36.2; O2SAT 100
== END 2019-11-16 13:09 | disposition home or self-care (01) ==
PROVIDERS: PCP Family Medicine; Visit Provider Surgery
PROC: (CPT 45380; principal; 2019-11-16 11:45)
DX: Z12.11 Encounter for screening for malignant neoplasm of colon (principal); C16.0 Malignant neoplasm of cardia; Z86.010 Personal history of colon polyps; D12.4 Benign neoplasm of descending colon; K57.30 Diverticulosis of large intestine without perforation or abscess without bleeding; K29.80 Duodenitis without bleeding; K62.1 Rectal polyp
CPT/HCPCS: 45380; 43239; 88305; J2001

== ENCOUNTER → 2019-11-22 09:43 | Outpatient (BNVA) | payer MEDICARE, SELFPAY | PROVIDERS: PCP Family Medicine; Referring Provider Family Medicine; Visit Provider Surgery | DX: C15.5 Malignant neoplasm of lower third of esophagus (principal) | CPT/HCPCS: 99212; 99442 ==

== ENCOUNTER 2019-12-14 10:11 | Outpatient (CLI) | payer MEDICARE, SELFPAY ==
--- NOTE | 2019-12-14 | DI.CT_ITS ---
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 DISEASE STATUS. TECHNIQUE: Imaging Protocol: Axial computed tomography images with coronal and sagittal reformatted images were created and reviewed CONTRAST MATERIAL: Intravenous: Omnipaque 350 Contrast volume:100 ml Oral: yes COMPARISON: No exams were available for comparison FINDINGS: CHEST: Thyroid: Unremarkable Tracheobronchial tree: Patent where visualized. Mediastinum and Evette: No dominant adenopathy or fluid collection. Pulmonary parenchyma: No consolidation or dominant measurable mass. No pulmonary nodules. Pleura: No effusion or pneumothorax. Lymph nodes: Within normal limits. Aorta: Thoracic portion non-dilated. Heart: Normal size. Bones: Degenerative disc changes. ABDOMEN: Liver: Normal density. No measurable mass. Gallbladder and biliary tract: No radiodense calculus or dilation. Pancreas: Normal density, no abnormal calcifications or inflammatory process. Spleen: Normal. Kidneys: Normal size, contour and axis. No obstructive uropathy. No masses seen. Small cysts bilatera lly. Nonobstructing stone lower pole right kidney. Adrenal glands: No masses seen. Aorta: Abdominal portion non-dilated. Lymph nodes: Within normal limits. Stomach and bowel: There is circumferential thickening of the distal esophagus, just above the GE franc ction to a diameter of 3.6 cm. The length of the mass measures 4.5 cm cephalo caudad. There are a few small surrounding lymph nodes in the upper abdomen, the largest measuring 2.1 cm. There are a few ot her smaller para-aortic lymph nodes, the largest measuring 1.5 cm beneath the level of the left renal vein. Soft tissues: Small fatty containing umbilical hernia. PELVIS: Bladder: Symmetric distention, mild wall thickening. Bowel: No obstruction or bowel wall thickening. Diverticulosis. Peritoneal cavity: No ascites, collection or mesenteric inflammatory response. Bones: Degenerative changes. L5 spondylolysis and mild L5-S1 spondylolisthesis. Reproductive organs: Enlarged prostate to a diameter of 5.8 cm. IMPRESSION: Distal esophageal mass. Mildly enlarged lymph nodes near the GE junction and para aortic region. RADIATION DOSE DELIVERED: 2,512.36mGy.cm Total DLP DATA REPOSITORY: All CT scans at this facility are submitted to the National Radiology Data Registry (NRDR) Dose Index Registry (DIR) with the [employer] ([employer]). RADIATION OPTIMIZATION: All CT scans at this facility use at least one of these dose optimization te chniques: automated exposure control; mA and/or kV adjustment per patient size (includes targeted exa ms where dose is matched to clinical indication); or iterative reconstruction.
[2019-12-14] MEDS: Omnipaque 350 MG/ML 50 ML BTL IJ (07:09)
[2019-12-14] MEDS: Breeza Beverage 473 ML BTL PO ×3 (07:10→07:11)
[2019-12-14 07:41] LABS: CREATININE 1.06 mg/dL (0.70-1.30)
[2019-12-14] MEDS: Omnipaque 350 MG/ML 100 ML BTL IJ (08:36)
[2019-12-14] MEDS: Normal Saline - Diluent 50 ML VIAL IV (08:37)
[2019-12-14] MEDS: Normal Saline Flush 10 ML SYR IVP (08:38)
== END 2019-12-14 10:31 ==
PROVIDERS: PCP Family Medicine; Visit Provider Thoracic Surgery (Cardiothoracic Vascular Surgery)
DX: C15.5 Malignant neoplasm of lower third of esophagus (principal); R59.0 Localized enlarged lymph nodes
CPT/HCPCS: 74177; 71260; 82565; J3490; Q9967

== ENCOUNTER 2019-12-21 01:13 | Outpatient (CLI) | payer MEDICARE, SELFPAY ==
[2019-12-21 11:24] LABS: Abs Immature Grans 0.02 10^3/uL (0.0-0.06); Absolute Basophil Count 0.08 10^3/uL (0.0-0.2); Absolute Eosinophil Count 0.71 10^3/uL (0.0-0.7); Absolute Lymphocyte Count 1.59 10^3/uL (1.2-3.4); Absolute Monocyte Count 0.48 10^3/uL (0.1-0.8); Absolute Neutrophil Count 5.23 10^3/uL (1.2-6.7); Eosinophils % 8.8; HCT 47.2 % (40.0-50.0); HGB 16.4 g/dL (13.5-17.5); Immature Grans % 0.2; Lymphocytes % 19.6; MCH 29.8 pg (27.0-33.0); MCHC 34.7 % (32.0-36.0); MCV 85.8 fL (80-95); MPV 10.9 fL (8.0-11.0); Monocytes % 5.9; Neutrophils % 64.5; Nucleated RBC 0 %; Platelet Count 275 10^3/uL (130-400); RDW 13.2 % (11.8-14.1); RDW-SD 41.4 fL; WBC 8.11 10^3/uL (4.4-10.8)
[2019-12-21 11:37] LABS: ALT 24 U/L (16-63); AST 16 U/L (15-37); Albumin 3.9 g/dL (3.4-5.0); Alkaline Phosphatase 118 U/L (46-116); Anion Gap 8.9 mmol/L (3-11); BUN 14 mg/dL (7-18); Bilirubin, Total 0.4 mg/dL (0.2-1.0); CO2 27.1 mmol/L (21.0-32.0); CREATININE 0.93 mg/dL (0.70-1.30); Calcium 9.8 mg/dL (8.5-10.1); Chloride 103 mmol/L (98-107); Glucose 96 mg/dL (74-106); Magnesium 2.1 mg/dL (1.8-2.4); Potassium 4.1 mmol/L (3.5-5.1); Sodium 139 mmol/L (136-145); Total Protein 7.7 g/dL (6.4-8.2)
== END 2019-12-21 01:33 ==
PROVIDERS: PCP Family Medicine; Visit Provider Internal Medicine Medical Oncology
DX: C15.9 Malignant neoplasm of esophagus, unspecified (principal)
CPT/HCPCS: 36415; 80053; 83735; 85025

== ENCOUNTER 2020-01-09 01:05 | Outpatient (RCR) | payer MEDICARE, SELFPAY ==
[2020-01-02] MEDS: Normal Saline Flush 10 ML SYR IVP (05:38)
[2020-01-02 10:26] LABS: Abs Immature Grans 0.01 10^3/uL (0.0-0.06); Absolute Basophil Count 0.08 10^3/uL (0.0-0.2); Absolute Eosinophil Count 0.53 10^3/uL (0.0-0.7); Absolute Monocyte Count 0.36 10^3/uL (0.1-0.8); Absolute Neutrophil Count 3.72 10^3/uL (1.2-6.7); Basophils % 1.4; HGB 15.7 g/dL (13.5-17.5); Immature Grans % 0.2; Lymphocytes % 20.3; MCH 29.7 pg (27.0-33.0); MCHC 34.9 % (32.0-36.0); MCV 85.1 fL (80-95); MPV 10.9 fL (8.0-11.0); Monocytes % 6.1; Nucleated RBC 0 %; Platelet Count 241 10^3/uL (130-400); RBC 5.29 10^6/uL (4.36-5.78); RDW 13.2 % (11.8-14.1)
[2020-01-02 10:38] LABS: ALT 20 U/L (16-63); AST 18 U/L (15-37); Albumin 3.8 g/dL (3.4-5.0); Alkaline Phosphatase 114 U/L (46-116); Anion Gap 7.2 mmol/L (3-11); BUN 16 mg/dL (7-18); Bilirubin, Total 0.3 mg/dL (0.2-1.0); CO2 25.8 mmol/L (21.0-32.0); CREATININE 0.96 mg/dL (0.70-1.30); Calcium 9.3 mg/dL (8.5-10.1); Chloride 103 mmol/L (98-107); Glucose 109 mg/dL (74-106); Potassium 4.3 mmol/L (3.5-5.1); Sodium 136 mmol/L (136-145); Total Protein 7.4 g/dL (6.4-8.2)
[2020-01-09] MEDS: Normal Saline Flush 10 ML SYR IVP (10:15)
[2020-01-09 10:35] LABS: Abs Immature Grans 0.08 10^3/uL (0.0-0.06); Absolute Basophil Count 0.06 10^3/uL (0.0-0.2); Absolute Eosinophil Count 0.28 10^3/uL (0.0-0.7); Absolute Lymphocyte Count 0.52 10^3/uL (1.2-3.4); Absolute Monocyte Count 0.34 10^3/uL (0.1-0.8); Absolute Neutrophil Count 3.86 10^3/uL (1.2-6.7); Basophils % 1.2; Eosinophils % 5.4; HCT 45.9 % (40.0-50.0); HGB 15.8 g/dL (13.5-17.5); Immature Grans % 1.6; Lymphocytes % 10.1; MCH 29.6 pg (27.0-33.0); MCHC 34.4 % (32.0-36.0); MCV 86.1 fL (80-95); MPV 11.1 fL (8.0-11.0); Monocytes % 6.6; Neutrophils % 75.1; Nucleated RBC 0 %; Platelet Count 240 10^3/uL (130-400); RBC 5.33 10^6/uL (4.36-5.78); RDW 12.9 % (11.8-14.1); RDW-SD 39.8 fL; WBC 5.14 10^3/uL (4.4-10.8)
[2020-01-09 10:45] LABS: ALT 21 U/L (16-63); AST 16 U/L (15-37); Albumin 3.6 g/dL (3.4-5.0); Alkaline Phosphatase 111 U/L (46-116); Anion Gap 8.1 mmol/L (3-11); BUN 17 mg/dL (7-18); Bilirubin, Total 0.3 mg/dL (0.2-1.0); CO2 24.9 mmol/L (21.0-32.0); CREATININE 0.85 mg/dL (0.70-1.30); Calcium 8.8 mg/dL (8.5-10.1); Chloride 102 mmol/L (98-107); Glucose 79 mg/dL (74-106); Magnesium 2.2 mg/dL (1.8-2.4); Potassium 4.5 mmol/L (3.5-5.1); Sodium 135 mmol/L (136-145); Total Protein 7.3 g/dL (6.4-8.2)
== END 2020-01-14 23:59 | disposition home or self-care (01) ==
LOC: INF 01:05
PROVIDERS: PCP Family Medicine; Visit Provider Internal Medicine Medical Oncology
DX: C15.9 Malignant neoplasm of esophagus, unspecified (principal)
CPT/HCPCS: 36415; 80053; 83735; 85025

== ENCOUNTER 2020-02-13 02:04 | Outpatient (RCR) | payer MEDICARE, SELFPAY ==
[2020-01-16] MEDS: Normal Saline Flush 10 ML SYR IVP (10:40)
[2020-01-16 10:45] LABS: Abs Immature Grans 0.03 10^3/uL (0.0-0.06); Absolute Basophil Count 0.02 10^3/uL (0.0-0.2); Absolute Eosinophil Count 0.07 10^3/uL (0.0-0.7); Absolute Lymphocyte Count 0.29 10^3/uL (1.2-3.4); Absolute Monocyte Count 0.22 10^3/uL (0.1-0.8); Absolute Neutrophil Count 2.83 10^3/uL (1.2-6.7); Basophils % 0.6; HCT 41.2 % (40.0-50.0); HGB 14.3 g/dL (13.5-17.5); Immature Grans % 0.9; Lymphocytes % 8.4; MCH 29.5 pg (27.0-33.0); MCHC 34.7 % (32.0-36.0); MCV 84.9 fL (80-95); MPV 11.2 fL (8.0-11.0); Monocytes % 6.4; Neutrophils % 81.7; Nucleated RBC 0 %; Platelet Count 158 10^3/uL (130-400); RBC 4.85 10^6/uL (4.36-5.78); RDW 13.2 % (11.8-14.1); RDW-SD 40.4 fL; WBC 3.46 10^3/uL (4.4-10.8)
[2020-01-16 10:57] LABS: ALT 24 U/L (16-63); AST 19 U/L (15-37); Albumin 3.5 g/dL (3.4-5.0); Alkaline Phosphatase 92 U/L (46-116); Anion Gap 6.8 mmol/L (3-11); BUN 9 mg/dL (7-18); Bilirubin, Total 0.3 mg/dL (0.2-1.0); CO2 24.2 mmol/L (21.0-32.0); Calcium 8.8 mg/dL (8.5-10.1); Chloride 106 mmol/L (98-107); Glucose 90 mg/dL (74-106); Potassium 3.9 mmol/L (3.5-5.1); Sodium 137 mmol/L (136-145); Total Protein 6.8 g/dL (6.4-8.2)
[2020-01-23] MEDS: Normal Saline Flush 10 ML SYR IVP (10:00)
[2020-01-23 10:20] LABS: Abs Immature Grans 0.02 10^3/uL (0.0-0.06); Absolute Basophil Count 0.03 10^3/uL (0.0-0.2); Absolute Eosinophil Count 0.07 10^3/uL (0.0-0.7); Absolute Monocyte Count 0.23 10^3/uL (0.1-0.8); Absolute Neutrophil Count 2.49 10^3/uL (1.2-6.7); Eosinophils % 2.3; HCT 43.3 % (40.0-50.0); HGB 15.1 g/dL (13.5-17.5); Immature Grans % 0.7; Lymphocytes % 6.6; MCH 30.1 pg (27.0-33.0); MCHC 34.9 % (32.0-36.0); MCV 86.4 fL (80-95); MPV 10.5 fL (8.0-11.0); Monocytes % 7.6; Neutrophils % 81.8; Nucleated RBC 0 %; RBC 5.01 10^6/uL (4.36-5.78); RDW 13.3 % (11.8-14.1); RDW-SD 41.1 fL; WBC 3.04 10^3/uL (4.4-10.8)
[2020-01-23 10:21] LABS: Platelet Count 122 10^3/uL (130-400)
[2020-01-23 10:38] LABS: ALT 54 U/L (16-63); AST 39 U/L (15-37); Albumin 3.9 g/dL (3.4-5.0); Alkaline Phosphatase 96 U/L (46-116); Anion Gap 10.6 mmol/L (3-11); BUN 12 mg/dL (7-18); Bilirubin, Total 0.3 mg/dL (0.2-1.0); CO2 24.4 mmol/L (21.0-32.0); CREATININE 0.74 mg/dL (0.70-1.30); Calcium 9.1 mg/dL (8.5-10.1); Chloride 104 mmol/L (98-107); Glucose 103 mg/dL (74-106); Potassium 3.9 mmol/L (3.5-5.1); Sodium 139 mmol/L (136-145); Total Protein 7.7 g/dL (6.4-8.2)
[2020-01-23 12:07] LABS: Magnesium 1.8 mg/dL (1.8-2.4)
[2020-01-30] MEDS: Normal Saline Flush 10 ML SYR IVP (10:00)
[2020-01-30 10:27] LABS: Abs Immature Grans 0.02 10^3/uL (0.0-0.06); Absolute Basophil Count 0.03 10^3/uL (0.0-0.2); Absolute Eosinophil Count 0.04 10^3/uL (0.0-0.7); Absolute Lymphocyte Count 0.14 10^3/uL (1.2-3.4); Absolute Monocyte Count 0.21 10^3/uL (0.1-0.8); Absolute Neutrophil Count 2.19 10^3/uL (1.2-6.7); Basophils % 1.1; Eosinophils % 1.5; HGB 14.1 g/dL (13.5-17.5); Immature Grans % 0.8; Lymphocytes % 5.3; MCH 30.2 pg (27.0-33.0); MCHC 35.3 % (32.0-36.0); MCV 85.7 fL (80-95); MPV 11.8 fL (8.0-11.0); Neutrophils % 83.3; Nucleated RBC 0 %; RBC 4.67 10^6/uL (4.36-5.78); RDW 13.5 % (11.8-14.1); RDW-SD 41.2 fL; WBC 2.63 10^3/uL (4.4-10.8)
[2020-01-30 10:51] LABS: ALT 38 U/L (16-63); AST 26 U/L (15-37); Albumin 3.5 g/dL (3.4-5.0); Alkaline Phosphatase 87 U/L (46-116); Anion Gap 9.2 mmol/L (3-11); BUN 16 mg/dL (7-18); Bilirubin, Total 0.4 mg/dL (0.2-1.0); CO2 22.8 mmol/L (21.0-32.0); CREATININE 0.84 mg/dL (0.70-1.30); Calcium 9.1 mg/dL (8.5-10.1); Chloride 105 mmol/L (98-107); Glucose 118 mg/dL (74-106); Magnesium 1.6 mg/dL (1.8-2.4); Sodium 137 mmol/L (136-145); Total Protein 6.9 g/dL (6.4-8.2)
[2020-01-30 10:52] LABS: Platelet Count 82 10^3/uL (130-400)
[2020-01-30 10:53] LABS: Diff Comment PLT Morph Reviewed; RBC Morphology Normal
[2020-02-06] MEDS: Normal Saline Flush 10 ML SYR IVP (09:55)
[2020-02-06 10:29] LABS: Abs Immature Grans 0.02 10^3/uL (0.0-0.06); Absolute Basophil Count 0.02 10^3/uL (0.0-0.2); Absolute Lymphocyte Count 0.16 10^3/uL (1.2-3.4); Absolute Monocyte Count 0.28 10^3/uL (0.1-0.8); Basophils % 1.1; HCT 39.6 % (40.0-50.0); Immature Grans % 1.1; MCH 29.9 pg (27.0-33.0); MCHC 35.4 % (32.0-36.0); MCV 84.4 fL (80-95); MPV 12.4 fL (8.0-11.0); Monocytes % 15.8; Nucleated RBC 0 %; RBC 4.69 10^6/uL (4.36-5.78); RDW 13.5 % (11.8-14.1); RDW-SD 39.7 fL
[2020-02-06 10:34] LABS: ALT 47 U/L (16-63); AST 32 U/L (15-37); Albumin 3.3 g/dL (3.4-5.0); Alkaline Phosphatase 103 U/L (46-116); Anion Gap 10.5 mmol/L (3-11); BUN 19 mg/dL (7-18); Bilirubin, Total 0.8 mg/dL (0.2-1.0); CO2 25.5 mmol/L (21.0-32.0); CREATININE 1.05 mg/dL (0.70-1.30); Calcium 9.5 mg/dL (8.5-10.1); Chloride 102 mmol/L (98-107); Glucose 98 mg/dL (74-106); Magnesium 1.9 mg/dL (1.8-2.4); Sodium 138 mmol/L (136-145); Total Protein 7.6 g/dL (6.4-8.2)
[2020-02-06 10:58] LABS: Diff Comment Diff Reviewed; Platelet Count 89 10^3/uL (130-400); WBC 1.77 10^3/uL (4.4-10.8)
[2020-02-06 10:59] LABS: Absolute Neutrophil Count 1.29 10^3/uL (1.2-6.7); RBC Morphology Normal
[2020-02-13] MEDS: Normal Saline Flush 10 ML SYR IVP (13:02)
[2020-02-13 13:07] LABS: Abs Immature Grans 0.02 10^3/uL (0.0-0.06); Absolute Basophil Count 0.03 10^3/uL (0.0-0.2); Absolute Eosinophil Count 0.01 10^3/uL (0.0-0.7); Absolute Lymphocyte Count 0.26 10^3/uL (1.2-3.4); Absolute Monocyte Count 0.74 10^3/uL (0.1-0.8); Absolute Neutrophil Count 2.02 10^3/uL (1.2-6.7); Eosinophils % 0.3; HCT 36.5 % (40.0-50.0); HGB 12.8 g/dL (13.5-17.5); Immature Grans % 0.6; Lymphocytes % 8.4; MCH 30.5 pg (27.0-33.0); MCHC 35.1 % (32.0-36.0); MCV 87.1 fL (80-95); MPV 11.6 fL (8.0-11.0); Neutrophils % 65.7; Nucleated RBC 0 %; Platelet Count 173 10^3/uL (130-400); RBC 4.19 10^6/uL (4.36-5.78); RDW 15.1 % (11.8-14.1); RDW-SD 43.7 fL; WBC 3.08 10^3/uL (4.4-10.8)
[2020-02-13 13:17] LABS: ALT 61 U/L (16-63); AST 45 U/L (15-37); Albumin 3.2 g/dL (3.4-5.0); Alkaline Phosphatase 117 U/L (46-116); Anion Gap 6.9 mmol/L (3-11); BUN 12 mg/dL (7-18); Bilirubin, Total 0.2 mg/dL (0.2-1.0); CO2 25.1 mmol/L (21.0-32.0); CREATININE 0.91 mg/dL (0.70-1.30); Chloride 104 mmol/L (98-107); Glucose 97 mg/dL (74-106); Magnesium 1.8 mg/dL (1.8-2.4); Potassium 3.8 mmol/L (3.5-5.1); Sodium 136 mmol/L (136-145); Total Protein 6.9 g/dL (6.4-8.2)
== END 2020-02-13 23:59 | disposition home or self-care (01) ==
LOC: INF 02:04
PROVIDERS: PCP Family Medicine; Visit Provider Internal Medicine Medical Oncology
DX: C15.9 Malignant neoplasm of esophagus, unspecified (principal)
CPT/HCPCS: 36415; 80053; 83735; 85025

== ENCOUNTER 2020-06-25 14:50 | Outpatient (REF) | payer OTHER, SELFPAY ==
[2020-06-25 23:41] LABS: Campylobacter PCR Negative (Negative); Shiga Toxin PCR Negative (Negative); Shigella/Enteroinvasive Ecoli Negative (Negative)
[2020-06-26 08:18] LABS: Salmonella PCR Positive (Negative)
== END 2020-06-25 14:51 | disposition home or self-care (01) ==
LOC: NCHCN 14:50
PROVIDERS: PCP Family Medicine; Visit Provider Family Medicine
DX: R19.7 Diarrhea, unspecified (principal)
CPT/HCPCS: 87329; 87505; 83630; 87177

== ENCOUNTER 2020-07-05 11:52 | Outpatient (REF) | payer OTHER, SELFPAY ==
[2020-07-05 13:23] LABS: C Diff PCR Negative (Negative)
== END 2020-07-05 11:53 | disposition home or self-care (01) ==
LOC: NCHCN 11:52
PROVIDERS: PCP Family Medicine; Visit Provider Family Medicine
DX: R19.7 Diarrhea, unspecified (principal)
CPT/HCPCS: 87493

== ENCOUNTER 2020-11-07 15:06 | Outpatient (CLI) | payer OTHER, SELFPAY ==
[2020-11-07 17:57] LABS: PSA, Diagnostic 6.6 ng/mL (0.0-3.5)
[2020-11-07 22:17] LABS: Campylobacter PCR Negative (Negative); Salmonella PCR Negative (Negative); Shiga Toxin PCR Negative (Negative); Shigella/Enteroinvasive Ecoli Negative (Negative)
== END 2020-11-07 15:07 | disposition home or self-care (01) ==
LOC: LOS 15:10
PROVIDERS: PCP Family Medicine; Visit Provider Urology
DX: R97.20 Elevated prostate specific antigen [PSA] (principal); R19.7 Diarrhea, unspecified; R11.2 Nausea with vomiting, unspecified
CPT/HCPCS: 36415; 87329; 87493; 87505; 84153

== ENCOUNTER 2020-12-10 15:59 | Outpatient (REF) | payer OTHER, SELFPAY ==
[2020-12-10 21:07] LABS: Abs Immature Grans 0.02 10^3/uL (0.0-0.06); Absolute Basophil Count 0.06 10^3/uL (0.0-0.2); Absolute Eosinophil Count 0.17 10^3/uL (0.0-0.7); Absolute Monocyte Count 0.78 10^3/uL (0.1-0.8); Absolute Neutrophil Count 4.55 10^3/uL (1.2-6.7); Basophils % 0.9; Eosinophils % 2.6; HGB 15.4 g/dL (13.5-17.5); Immature Grans % 0.3; Lymphocytes % 13.9; MCHC 34.2 % (32.0-36.0); MCV 90.5 fL (80-95); MPV 10.3 fL (8.0-11.0); Neutrophils % 70.3; Nucleated RBC 0 %; Platelet Count 225 10^3/uL (130-400); RBC 4.97 10^6/uL (4.36-5.78); RDW 13.2 % (11.8-14.1); WBC 6.48 10^3/uL (4.4-10.8)
[2020-12-10 21:48] LABS: FREE T4 0.95 ng/dL (0.76-1.46); TSH 0.79 uIU/mL (0.36-3.74)
[2020-12-11 17:02] LABS: T3,Free 2.5 pg/mL (2.8-5.3)
== END 2020-12-10 16:00 | disposition home or self-care (01) ==
LOC: NCHCN 15:59
PROVIDERS: PCP Family Medicine; Visit Provider Family Medicine
DX: R47.02 Dysphasia (principal); R19.7 Diarrhea, unspecified; Z86.79 Personal history of other diseases of the circulatory system
CPT/HCPCS: 84439; 84443; 84481; 85025

== ENCOUNTER 2020-12-12 16:44 | Emergency (ER) | payer MEDICARE, SELFPAY ==
[2020-12-12] VITALS (27 sets, daily range): BP systolic 145–168; BP diastolic 73–104; PULSE 38–79; RESP 10–21; TEMP 36; O2SAT 93–100
--- NOTE | 2020-12-12 16:30 | RT.EKG_ITS ---
APPROVED REPORT Exam: Resting ECG Reason for Exam: afib Patient Location: E HR:38 bpm ECG Measurements Heart Rate 38 AXIS MN 160 P 7 QRSd 106 QRS -18 QT 529 T -16 QTc 421 Conclusion Sinus bradycardia...rate< 60 Atrial premature complex...SV complex w/ short R-R interval Probable left ventricular hypertrophy...multiple LVH criteria Nonspecific T abnormalities, inferior leads...T <-0.10mV, II III aVF
[2020-12-12 16:54] LABS: Abs Immature Grans 0.03 10^3/uL (0.0-0.06); Absolute Basophil Count 0.08 10^3/uL (0.0-0.2); Absolute Eosinophil Count 0.44 10^3/uL (0.0-0.7); Absolute Monocyte Count 0.99 10^3/uL (0.1-0.8); Absolute Neutrophil Count 3.43 10^3/uL (1.2-6.7); Basophils % 1.2; Eosinophils % 6.5; HCT 43.5 % (40.0-50.0); Immature Grans % 0.4; Lymphocytes % 26.6; MCH 30.8 pg (27.0-33.0); MCHC 34.5 % (32.0-36.0); MCV 89.3 fL (80-95); MPV 10.3 fL (8.0-11.0); Monocytes % 14.6; Neutrophils % 50.7; Nucleated RBC 0 %; Platelet Count 284 10^3/uL (130-400); RBC 4.87 10^6/uL (4.36-5.78); RDW-SD 42.7 fL; WBC 6.77 10^3/uL (4.4-10.8)
--- NOTE | 2020-12-12 17:00 | DI.CT_ITS ---
Exam(s) CT HEAD WO EXAM: CT HEAD WO CLINICAL HISTORY: right posterior LAMAS, prior esaphageal CA, bradycard. TECHNIQUE: Imaging Protocol: Axial computed tomography images with coronal and sagittal reformatted images were created and reviewed COMPARISON: No exams were available for comparison FINDINGS: Ventricles and Extra axial spaces: Normal in size and morphology for the patient's age. Hemorrhage: None. Cerebral parenchyma: No acute territorial infarct. Midline shift: None. Brainstem/Cerebellum: Normal. Calvarium: Normal. Visualized Paranasal sinuses/Mastoids: Clear. Soft Tissues: Unremarkable. IMPRESSION: No acute intracranial process. RADIATION DOSE DELIVERED: 828.79mGy.cm Total DLP DATA REPOSITORY: All CT scans at this facility are submitted to the National Radiology Data Registry (NRDR) Dose Index Registry (DIR) with the [employer] ([employer]). RADIATION OPTIMIZATION: All CT scans at this facility use at least one of these dose optimization te chniques: automated exposure control; mA and/or kV adjustment per patient size (includes targeted exa ms where dose is matched to clinical indication); or iterative reconstruction.
--- NOTE | 2020-12-12 17:03 | ED.GENADUL_ITS ---
Discharge Plan Disposition Patient Disposition: [facility] Condition: Critical Discharge Details Chief Complaint: Dizzy/Sync Clinical Impression: Bradycardia, Elevated troponin Primary Care Provider: Syeda Jennings ED Provider: Chetan Lozano Home Meds and New Rx's Prescriptions: No Action theophylline 600 MG tablet extended release 24 hr 600 mg PO BID RF: 0 epinephrine 0.3 mg/0.3 mL auto-injector 0.3 mg IM ONCE RF: 0 hydrocortisone 2.5 % cream 1 applic TP BID PRNRF: 0 albuterol sulfate [Ventolin HFA] 90 mcg/actuation HFA aerosol inhaler 2 puff inhalation BID RF: 0 albuterol sulfate [ProAir HFA] 200 PUFF HFA aerosol inhaler 1 puff Inhalation PRN PRNRF: 0 acetaminophen 500 mg tablet 1,000 mg PO Q8H PRN (Reason: pain) Qty: 90 RF: 3 tramadol 50 mg tablet 50 mg PO TID PRNRF: 0 metoprolol succinate 25 mg tablet extended release 24 hr 25 mg PO BID RF: 0 mirtazapine 7.5 mg tablet See Rx Instructions .ROUTE .COMPLEX RF: 0 Linzess 145 mcg capsule 145 mcg PO DAILY RF: 0 omeprazole 40 mg capsule,delayed release(DR/EC) 20 mg PO DAILY RF: 0 Discharge Data Discharge Date/Time-TO BE ENTERED AT DEPARTURE: 12/12/20 19:30 Medical Decision Making 60-year-old male with prior history of atrial fibrillation, on beta-carmel which has been taking as prescribed, esophageal cancer status post resection and chemo, now in remission, here with lightheadedness and nausea. Patient noted to be bradycardic in the 30s on arrival. Concern for symptomatic bradycardia. EKG was reviewed and interpreted by me: Sinus bradycardia 38 bpm, T wave inversions are noted in 3 and aVF. Plan to give atropine 0.5 mg IV. I will also give glucagon 5 mg IV. Zofran 4 mg IV for Patient does have moderate right posterior headache. Given prior history of esophageal cancer, consider metastasis in intracranial hemorrhage. Will obtain CT of the head. 1744 --patient reassessed and atropine did improve heart rate to mid 50s. He remained symptomatic with severe nausea despite Zofran. I will give additional antiemetic Reglan. Labs reviewed and initial troponin elevated at 0.08. I am concerned that elevated troponin is secondary to NSTEMI. Awaiting result of head CT. Plan will be to initiate treatment with aspirin and heparin. [place] [facility] [place] and declined due to capacity. I called [facility] transfer center and requested transfer. Awaiting callback from cardiology. 1757 --I spoke with Dr. Hadley at [facility] cardiology, discussed ED presentation and course and diagnostic results, he agrees with concern for NSTEMI and recommends anticoagulating with aspirin, Plavix and heparin. He will accept the patient in transfer. Awaiting bed availability. Lab Data Lab results reviewed: Yes I reviewed the patient's lab results. HPI General Mode of arrival: EMS . Date/Time Provider Initiated Documentation: 12/12/20 17:01 . Limitations to Documentation: no limitations . Information obtained by: patient and EMS . HPI Narrative: 60-year-old male with prior history of esophageal cancer status post resection and chemo, now in remission, here with sudden onset of dizziness described as lightheadedness 4 PM today. Patient notes symptoms are severe and persistent. No modifiers. He has associated nausea. He also notes associated right-sided posterior headache that also started this afternoon shortly before arrival. Patient denies chest pain. No shortness of breath. Related Data Home Medications Medication Instructions Recorded Confirmed theophylline 600 mg PO BID 03/23/15 12/12/20 albuterol sulfate [ProAir HFA] 1 puff INHALATION PRN PRN 05/14/15 12/12/20 acetaminophen 1,000 mg PO Q8H PRN #90 tab 06/15/18 12/12/20 albuterol sulfate 90 mcg/actuation 2 puff INHALATION BID 11/01/19 12/12/20 aerosol inhaler epinephrine 0.3 mg/0.3 mL 0.3 mg IM ONCE 11/01/19 12/12/20 injection, auto-injector hydrocortisone 2.5 % topical cream 1 applic TP BID PRN 11/01/19 12/12/20 linaclotide [Linzess] 145 mcg PO DAILY 12/12/20 12/12/20 metoprolol succinate 25 mg PO BID 12/12/20 12/12/20 mirtazapine See Rx Instructions .ROUTE .COMPLEX 12/12/20 12/12/20 omeprazole 20 mg PO DAILY 12/12/20 12/12/20 tramadol 50 mg PO TID PRN 12/12/20 12/12/20 Previous Rx's Medication Instructions Recorded acetaminophen 1,000 mg PO Q8H PRN #90 tab 06/15/18 Allergies Allergy/AdvReac Type Severity Reaction Status Date / Time gaona Allergy Severe angioedema Verified 12/12/20 16:48 egg Allergy Severe angioedema Verified 12/12/20 16:48 nut - unspecified [nut] Allergy Severe angioedema Verified 12/12/20 16:48 Grass, Mold Allergy Unknown Other (See Uncoded 12/12/20 16:48 Comment) General Stated Complaint: Dizzy/Sync KAREN: 2 Review of Systems All systems reviewed & are unremarkable except as noted in HPI and below Constitutional Constitutional: Denies fever(s) ENT Ears, Nose, Mouth, and Throat: Reports dizziness Cardiovascular Cardiovascular: Denies chest pain Gastrointestinal Gastrointestinal: Denies abdominal pain and Reports nausea Neurologic Neurologic: Reports dizziness PFSH Medical History Allergic rhinitis (03/13/14) Arthralgia of right acromioclavicular joint Asthma (03/13/14) Dysphagia Elevated PSA GERD (gastroesophageal reflux disease) History of asthma Hx of eczema Hypertension Obesity Postnasal drip (03/13/14) Right rotator cuff tear Serrated adenoma of colon Shortness of breath Tendinitis of left rotator cuff Wheezing (03/13/14) Surgical History Colonoscopy - IV Sedation 2004- , 2015 H/O esophagogastroduodenoscopy (~11/16/19) Mass at GE junction- Bx positive for invasive Adenocarcinoma History of appendectomy Hx of arthroscopy of left knee x 5 Meniscus; lateral release; Dionte procedure for tibial tubercle; revision of Dionte procedure; debridement Status post right rotator cuff repair DOS: 06/15/18 Dr. Gaxiola Repair of supraspinatus; distal clavicle excision; biceps tenodesis; acromioplasty; Debridement of glenohumeral joint and rotator cuff Vasectomy Family History Mother Breast cancer Heart disease Father No problems noted. Social History Smoking/Tobacco Use Status: Former Tobacco Use Quit Date: 03/16/07 Tobacco: How many years used: 30 Smoking risk assessment performed?: Yes Alcohol Intake: current Alcohol Intake frequency: a few times a month Alcohol type: beer, wine and hard liquor Drug use: Never Substance use type: does not use Household members: spouse Current gender identity: male Do you feel safe at home: Yes Do you feel safe in your relationship?: Yes Exam Const General: cooperative Nutritional Appearance: well nourished Orientation: alert and awake HENMT Mouth: moist mucous membranes Eyes Conjunctivae: normal conjunctivae Sclera: normal sclerae Neck Neck: trachea midline and supple Resp Auscultation: clear to auscultation bilaterally, no rales, no rhonchi and no wheezes Cardio Rate: bradycardic and not tachycardic Rhythm: regular rhythm GI Palpation: soft, not firm, no guarding, no masses, not rigid and nontender Skin General skin exam: no rashes or lesions noted Neuro General: patient alert, patient awake, patient oriented x3 and tone normal Extrem General: no edema Psych Appearance: grossly normal Mental Status: mental status grossly normal Speech and Movement: speech and movement normal Course Vital Signs Vital signs: Vital Signs Temperature 36 C L 12/12/20 16:35 Pulse 56 L 12/12/20 16:35 Respiratory Rate 12 12/12/20 16:35 Blood Pressure 168/104 H 12/12/20 16:35 Pulse Oximetry 99 12/12/20 16:35 Temperature 36 C L 12/12/20 16:35 Temperature Source Skin 12/12/20 16:35 Pulse 56 L 12/12/20 16:35 Respiratory Rate 12 12/12/20 16:35 Respiratory Effort 12/12/20 16:52 Blood Pressure 168/104 H 12/12/20 16:35 Pulse Oximetry 99 12/12/20 16:35 Oxygen Delivery Method Room Air 12/12/20 16:35 Oxygen Flow Rate 0 12/12/20 16:35 Pain Level 6 12/12/20 16:35 Comment right side back of neck is sore 12/12/20 16:35 Lab/Test Results Lab/Test Results: Laboratory Tests Range/Units 12/12/20 16:25 WBC (4.4-10.8) 10^3/uL 6.77 RBC (4.36-5.78) 10^6/uL 4.87 Hgb (13.5-17.5) g/dL 15.0 Hct (40.0-50.0) % 43.5 MCV (80-95) fL 89.3 MCH (27.0-33.0) pg 30.8 MCHC (32.0-36.0) % 34.5 RDW (11.8-14.1) % 13.0 Plt Count (130-400) 10^3/uL 284 MPV (8.0-11.0) fL 10.3 Immature Gran % 0.4 Neutrophils % 50.7 Lymphocytes % 26.6 Monocytes % 14.6 Eosinophils % 6.5 Basophils % 1.2 Nucleated RBC % % 0 Absolute Neutrophils (1.2-6.7) 10^3/uL 3.43 Absolute Lymphocytes (1.2-3.4) 10^3/uL 1.80 Absolute Monocytes (0.1-0.8) 10^3/uL 0.99 H Absolute Eosinophils (0.0-0.7) 10^3/uL 0.44 Absolute Basophils (0.0-0.2) 10^3/uL 0.08 Critical Care Time Critical Care Time Critical Care Time: Yes Total Critical Care Time: 45 Attestation: I spent greater than 45 minutes addressing this patient's immediate life threats. Please see MDM section of note. This time was spent engaged in work directly related to the patient's care, exclusive of separate procedures, and failure to initiate these interventions would have likely resulted in clinically significant or life threatening deterioration in the patient's condition.
[2020-12-12] MEDS: Atropine 1 MG/10 ML SYRINGE 0.5 MG IVP (17:14)
[2020-12-12] MEDS: Ondansetron 4 MG/2 ML VIAL IVP (17:14)
[2020-12-12 17:23] LABS: Magnesium 2.3 mg/dL (1.8-2.4)
[2020-12-12 17:25] LABS: ALT 54 U/L (16-63); AST 36 U/L (15-37); Albumin 3.8 g/dL (3.4-5.0); Alkaline Phosphatase 146 U/L (46-116); Anion Gap 11.2 mmol/L (3-11); BUN 16 mg/dL (7-18); Bilirubin, Total 0.4 mg/dL (0.2-1.0); CO2 24.8 mmol/L (21.0-32.0); CREATININE 0.9 mg/dL (0.70-1.30); Calcium 9.5 mg/dL (8.5-10.1); Chloride 106 mmol/L (98-107); Glucose 136 mg/dL (74-106); Potassium 3.7 mmol/L (3.5-5.1); Sodium 142 mmol/L (136-145); Total Protein 8.2 g/dL (6.4-8.2)
[2020-12-12 17:36] LABS: TSH (W/Ref FT4) 1.62 uIU/mL (0.36-3.74)
[2020-12-12 17:38] LABS: Troponin I 0.08 ng/mL (<0.06)
[2020-12-12] MEDS: Metoclopramide 10 MG/2 ML VIAL IVP (17:49)
--- NOTE | 2020-12-12 17:50 | DI.VRAD_ITS ---
PROCEDURE INFORMATION: Exam: CT Head Without Contrast Exam date and time: 12/12/2020 5:02 PM Age: 60 years old Clinical indication: Other: Right posterior LAMAS, prior esaphageal CA, bradycard TECHNIQUE: Imaging protocol: Computed tomography of the head without contrast. COMPARISON: CT HEAD WO 11/27/2017 8:40 AM FINDINGS: Brain: Cerebral sulci again demonstrate bilateral symmetry with no supratentorial mass or mass effect detected. A few poorly marginated hypodensities seen throughout the deep and periventricular white matter of both cerebral hemispheres are consistent with microvascular ischemic changes of relatively mild degree. Brainstem and cerebellum are normal in appearance and there is no evidence of acute infarct or recent intracranial hemorrhage. Cerebral ventricles: Normal in configuration with no midline shift or hydrocephalus. Paranasal sinuses: Grossly clear throughout. Mastoid air cells: Grossly clear bilaterally. Bones/joints: Bony calvarium and skull base are intact and no acute fractures are detected. Soft tissues: Unremarkable. IMPRESSION: Suspected microvascular ischemic changes of mild degree with no evidence of acute infarct, recent hemorrhage or hydrocephalus. No acute intracranial process is detected. Dictated and Authenticated by: Mykel Edwards MD. Ordering:RAVI Benton MD
[2020-12-12] MEDS: Glucagon 1 MG VIAL 5 MG IVP (17:56)
[2020-12-12] MEDS: Clopidogrel 300 MG TAB PO (18:12)
[2020-12-12] MEDS: Aspirin 325 MG TAB PO (18:12)
[2020-12-12 18:29] LABS: Source Nasal/Nares
--- NOTE | 2020-12-12 18:30 | RT.EKG_ITS ---
APPROVED REPORT Exam: Resting ECG Reason for Exam: bradycardia Patient Location: E HR:52 bpm ECG Measurements Heart Rate 52 AXIS WI 163 P 22 QRSd 102 QRS -21 QT 477 T -14 QTc 446 Conclusion Sinus bradycardia...rate< 60 Probable left ventricular hypertrophy...multiple LVH criteria Nonspecific T abnormalities, inferior leads...T <-0.10mV, II III aVF
[2020-12-12 19:02] LABS: Troponin I 0.06 ng/mL (<0.06)
[2020-12-12 19:30] LABS: PTT Activated 83.4 sec (21.0-27.5)
[2020-12-12 20:35] LABS: COVID-19 PCR Negative (Negative)
== END 2020-12-12 19:30 ==
PROVIDERS: Emergency Provider Student in an Organized Health Care Education/Training Program; PCP Family Medicine
DX: R00.1 Bradycardia, unspecified (principal); R79.89 Other specified abnormal findings of blood chemistry; R11.0 Nausea; I48.91 Unspecified atrial fibrillation
CPT/HCPCS: 36416; 80053; 82962; 87635; 93005; 96365; 96375; 96376; 99291; 70450; 83735; 84443; 84484; 85025; 85730; 93010; J1610; J2405; J2765